=== PATIENT | male | born 1990 | race Caucasian/White ===

== ENCOUNTER → 2018-12-20 | Outpatient (CLI) | payer MEDICAID ==
--- NOTE | 2018-12-20 14:52 | Diagnostic Imaging Report ---
INDICATION: Right knee pain and swelling COMPARISON: None. FINDINGS: 3 views of the right knee joint demonstrate no acute fracture or dislocation. No focal osseous lesions are seen. No significant joint effusion is seen. The surrounding soft tissue structures are unremarkable. There are no radiopaque foreign bodies. IMPRESSION: 1. No acute fractures or dislocations of the right knee joint. Dictated by: Dictated on workstation # [id number]
== END ==
LOC: RAD FS 13:39
PROVIDERS: ATTEND Nurse Practitioner
DX: M25.461 Effusion, right knee (principal)
CPT/HCPCS: 73562

== ENCOUNTER → 2018-12-28 | Outpatient (CLI) | payer MEDICAID ==
--- NOTE | 2018-12-28 10:57 | Diagnostic Imaging Report ---
EXAMINATION: Magnetic resonance imaging of the right knee without intravenous contrast DATE: December 28, 2018. COMPARISON: Right knee radiographs December 20, 2018. INDICATION: 28-year-old male, right knee pain for approximately 2 months. No known recent injury. TECHNIQUE: Multiplanar, multisequence non contrast enhanced MR imaging was accomplished. FINDINGS: MENISCI: The medial meniscus is intact. The lateral meniscus is intact. LIGAMENTS AND TENDONS: The anterior and posterior cruciate ligaments are intact. The medial collateral ligament is intact. The iliotibial band, mid third lateral capsular ligament, fibular collateral ligament, biceps femoris tendon and conjoined tendon are intact. The quadriceps tendon and patella ligament are intact. JOINT: The articular cartilage surfaces are intact. There is no knee joint effusion, prominent synovitis, or intra-articular body. BONE: There is unremarkable bone marrow signal. Specifically, negative for fracture, osteomyelitis, osteonecrosis, or marrow replacing process. BURSAE AND SOFT TISSUES: There is a multiloculated ganglion cyst near the posterior knee joint capsule measuring 21 x 9 x 7 mm in size perhaps best illustrated on axial T2 fat saturation sequence image 4. There is a very small slitlike Huitron's cyst. IMPRESSION: 1. Intact menisci and cruciate ligaments. Additional ligaments and tendons are also intact. 2. Intact articular cartilage. No knee joint effusion. 3. No acute fracture, bone contusion, or other bone marrow signal abnormality. 4. Multiloculated ganglion cyst near the posterior knee joint capsule measuring 21 x 9 x 7 mm in size. Small slitlike Huitron's cyst. Dictated by: Dictated on workstation # [id number]
== END ==
LOC: RAD 08:56
PROVIDERS: ATTEND Nurse Practitioner
DX: M67.461 Ganglion, right knee (principal); M22.41 Chondromalacia patellae, right knee
CPT/HCPCS: 73721

== ENCOUNTER → 2018-12-30 | Outpatient (CLI) | payer MEDICAID ==
--- NOTE | 2018-12-30 11:22 | Diagnostic Imaging Report ---
INDICATION: Right shoulder pain. TIME OF EXAM: 10:41 a.m. Three views of the right shoulder were obtained. Glenohumeral and acromioclavicular alignment are normal. Acromiohumeral space is normal. No fracture or dislocation is seen. IMPRESSION: No acute bony abnormality is detected. Dictated by: Dictated on workstation # [id number]
== END ==
LOC: RAD FS 10:37
PROVIDERS: ATTEND Nurse Practitioner
DX: M25.511 Pain in right shoulder (principal)
CPT/HCPCS: 73030

== ENCOUNTER 2020-12-13 21:49 | Inpatient (IN) | payer BC, MEDICAID ==
[~2020-12-13] VITALS: Ht 177.8 cm; Wt 121.0 kg
--- OUTSIDE RECORDS SUMMARY | 2020-12-13 21:54 | XMS REPORT | Clinical Summary ---
Author Author [facility] Organization [facility] Address Unknown Phone Unavailable Care Team Providers Care Engineer Soils Name Role Phone Self, Yusuf LEWIS PCP Allergies No known active allergies Medications End Date Status Medication Sig Dispensed Refills Start Date Active cyclobenzaprine 0 (FLEXERIL) 10 MG tablet 7 Active diclofenac (VOLTAREN) 1 % 0 gel 7 Active meloxicam (MOBIC) 15 MG 0 tablet 7 Active oxyCODONE-acetaminophen Take 1 tablet 0 (PERCOCET) 2.5-325 mg per by mouth tablet every 4 (four) hours as needed for pain. Active Problems Not on file Social History Date Tobacco Use Types Packs/Day Years Used Never Smoker Smokeless Tobacco: Never Used Comments Alcohol Use Standard Drinks/Week No 0 (1 standard drink = 0.6 o z pure alcohol) Sex Assigned at Date Recorded Not on file Last Filed Vital Signs Reading Time Taken Comments Vital Sign 144/73 09/20/2016 1:45 PM CDT Blood Pressure 78 09/20/2016 1:45 PM CDT Pulse 36.7 C (98.1 F) 09/20/2016 1:45 PM CDT Temperature 16 09/20/2016 1:45 PM CDT Respiratory Rate 100% 09/20/2016 2:17 PM CDT Oxygen Saturation - - Inhaled Oxygen Concentration 99 kg (218 lb 4.1 oz) 11/16/2015 9:44 PM CDT Weight 182.9 cm (6') 11/16/2015 9:44 PM CDT Height 29.6 11/16/2015 9:44 PM CDT Body Mass Index Plan of Treatment Health Maintenance Due Date Last Done Comments Td/Tdap# 1990 Influenza Vaccine (#1) 2020 Pneumococcal Vaccine: Aged Out No longer eligib le based on patient's age to Pediatrics (0 to 5 Years) complete this topic and At-Risk Patients (6 to 64 Years) Results Not on filefrom Last 3 Months Advance Directives For more information, please contact: [phone] 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
[2020-12-13] MEDS ORDERED: NS IV 1000 ML 1,000 ML IV SCH (22:15)
--- NOTE | 2020-12-13 22:15 | ED General ---
General Stated Complaint: COVID+,O2 LOW Source of Information: Patient History of Present Illness Date Seen by Provider: Dec 13, 2020 Time Seen by Provider: 21:51 Initial Comments 30-year-old male presenting with complaints of increased shortness of breath and cough. He was diagnosed with Covid last week on Thursday. He follows with nurse practitioner Kristopher Wyatt at the clinic with Dr. Rhoades here in [place]. He states that the started him on a Z-Cole as well as Medrol Dosepak, DuoNeb treatments, budesonide breathing treatments, Zofran on Thursday, December 10. He has also been supplied with oxygen for home and was reportedly on 5 L. He has been complaining of back pain and muscle aches. He states that all day today he has been feeling worse. Finally around 10 PM he came here to the emergency department. He has a history of prediabetes and hypothyroidism. Timing/Duration: 1 Week Modifying Factors: worse with Movement (Activity makes him more short of breath) Associated Systoms: Cough; No Diaphoresis; Malaise; No Nausea/Vomiting; Shortness of Air, Weakness Allergies and Home Medications Allergies Coded Allergies: No Known Drug Allergies (Unverified , 12/13/20) Patient Home Medication List Home Medication List Reviewed: Yes Review of Systems Review of Systems Constitutional: fever (Subjective) EENTM: nose congestion; No epistaxis Respiratory: cough, short of breath; No stridor, No wheezing Cardiovascular: palpitations Gastrointestinal: No diarrhea, No nausea, No vomiting Genitourinary: decreased output; No dysuria Musculoskeletal: back pain (Low back pain with muscle spasms) Skin: No rash Psychiatric/Neurological: Weakness (Generalized) Hematologic/Lymphatic: Denies Blood Clots Past Nstocpn-Etheyv-Pqmcdq Hx Past Medical History Surgeries: No Respiratory: No Cardiac: No Neurological: No Genitourinary: No Gastrointestinal: No Musculoskeletal: No Endocrine: Yes (Prediabetes and hypothyroid) Hypothyroidsim HEENT: No Cancer: No Psychosocial: No Physical Exam Vital Signs Vital Signs - First Documented 12/13/20 12/13/20 21:58 23:51 Temp 36.9 Pulse 110 Resp 20 B/P (MAP) 149/82 (104) Pulse Ox 88 O2 Delivery Room Air O2 Flow Rate 2.00 Capillary Refill : Height, Weight, BMI Height: '" Weight: lbs. oz. kg; BMI Method: General Appearance: Mild Distress HEENT: PERRL/EOMI; No Moist Mucous Membranes (Slightly dry) Neck: Full Range of Motion, Normal Inspection, Non Tender, Supple Respiratory: No Accessory Muscle Use, Decreased Breath Sounds, Respiratory Distress (breathing about 30 times a min) Cardiovascular: Normal Peripheral Pulses, Tachycardia Gastrointestinal: Normal Bowel Sounds, No Pulsatile Mass, Non Tender, Soft Extremity: Normal Capillary Refill, Normal Inspection, No Pedal Edema Neurologic/Psychiatric: Alert, Oriented x3, clarifier II-XII Norm as Tested Skin: Normal Color, Warm/Dry Focused Exam Lactate Level 12/13/20 22:00: Lactic Acid Level 1.55 Lactic Acid Level Laboratory Tests Test 12/13/20 22:00 Lactic Acid Level 1.55 MMOL/L (0.50-2.00) Progress/Results/Core Measures Suspected Sepsis SIRS Temperature: Pulse: Respiratory Rate: Laboratory Tests 12/13/20 22:00: White Blood Count 3.6L Blood Pressure / Mean: 12/13/20 22:00: Lactic Acid Level 1.55 Laboratory Tests 12/13/20 22:00: Creatinine 1.37H, INR Comment 0.9, Platelet Count 178, Total Bilirubin 0.5 Results/Orders Lab Results Laboratory Tests Test 12/13/20 00:06 12/13/20 22:00 Range/Units White Blood Count 3.6 L 4.3-11.0 10^3/uL Red Blood Count 4.77 4.30-5.52 10^6/uL Hemoglobin 14.7 13.3-17.7 g/dL Hematocrit 43 40-54 % Mean Corpuscular Volume 90 80-99 fL Mean Corpuscular Hemoglobin 31 25-34 pg Mean Corpuscular Hemoglobin Concent 34 32-36 g/dL Red Cell Distribution Width 12.0 10.0-14.5 % Platelet Count 178 130-400 10^3/uL Mean Platelet Volume 10.8 9.0-12.2 fL Immature Granulocyte % (Auto) 1 % Neutrophils (%) (Auto) 81 H 42-75 % Lymphocytes (%) (Auto) 15 12-44 % Monocytes (%) (Auto) 4 0-12 % Eosinophils (%) (Auto) 0 0-10 % Basophils (%) (Auto) 0 0-10 % Neutrophils # (Auto) 2.9 1.8-7.8 X 10^3 Lymphocytes # (Auto) 0.5 L 1.0-4.0 X 10^3 Monocytes # (Auto) 0.1 0.0-1.0 X 10^3 Eosinophils # (Auto) 0.0 0.0-0.3 10^3/uL Basophils # (Auto) 0.0 0.0-0.1 10^3/uL Immature Granulocyte # (Auto) 0.0 0.0-0.1 10^3/uL Prothrombin Time 12.3 12.2-14.7 SEC INR Comment 0.9 0.8-1.4 Activated Partial Thromboplast Time 33 24-35 SEC D-Dimer 0.58 H 0.00-0.49 UG/ML Sodium Level 137 135-145 MMOL/L Potassium Level 4.1 3.6-5.0 MMOL/L Chloride Level 99 98-107 MMOL/L Carbon Dioxide Level 27 21-32 MMOL/L Anion Gap 11 5-14 MMOL/L Blood Urea Nitrogen 13 7-18 MG/DL Creatinine 1.37 H 0.60-1.30 MG/DL Estimat Glomerular Filtration Rate 62 BUN/Creatinine Ratio 9 Glucose Level 164 H 70-105 MG/DL Lactic Acid Level 1.55 0.50-2.00 MMOL/L Calcium Level 8.8 8.5-10.1 MG/DL Corrected Calcium 8.6 8.5-10.1 MG/DL Total Bilirubin 0.5 0.1-1.0 MG/DL Aspartate Amino Transf (AST/SGOT) 23 5-34 U/L Alanine Aminotransferase (ALT/SGPT) 37 0-55 U/L Alkaline Phosphatase 54 40-136 U/L Troponin I < 0.30 <0.30 NG/ML C-Reactive Protein 2.67 H <0.50 MG/DL Total Protein 7.6 6.4-8.2 GM/DL Albumin 4.3 3.2-4.5 GM/DL My Orders Orders - FATOU MARY MD Monitor-Rhythm Ecg Trace Only (12/13/20 22:06) Ed Iv/Invasive Line Start (12/13/20 22:06) Cbc With Automated Diff (12/13/20 22:06) Comprehensive Metabolic Panel (12/13/20 22:06) Crp Fs (12/13/20 22:06) Troponin I Fs (12/13/20 22:06) Protime With Inr (12/13/20:) Partial Thromboplastin Time (12/13/20 22:) Ekg Tracing (12/13/20 22:) Arterial Blood Gas (12/13/20 22:) Ns Iv 1000 Ml (Sodium Chloride 0.9%) (12/13/20 22:15) Covid-19 External Lab Results (12/13/20 22:) Isolation Central Supply Req (12/13/20 22:) Fibrin Degradation Products (12/13/20 22:) Chest 1 View Ap/Pa Only (12/13/20:) Blood Culture (12/13/20:08) Lactic Acid Analyzer (12/13/20 22:) O2 (12/13/20:08) Ns Iv 1000 Ml (Sodium Chloride 0.9%) (12/13/20 23:25) Benzonatate Capsule (Tessalon Perles) (12/13/20 23:25) Vital Signs/I&O 12/13/20 12/13/20 21:58 23:51 Temp 36.9 Pulse 110 98 Resp 20 20 B/P (MAP) 149/82 (104) 140/68 Pulse Ox 88 97 O2 Delivery Room Air Nasal Cannula O2 Flow Rate 2.00 12/14/20 00:00 Intake Total 1000 ml Balance 1000 ml Capillary Refill : Progress Note #1: Progress Note Obtain labs with blood gas and blood cultures with lactic acid. Electrocardiogram with cardiac enzymes. Chest x-ray. We will try to obtain a blood gas following manner. His O2 sat was anywhere from 84% to 92% on room air examining the patient. Give IV fluids for Hydration. Progress Note #2: Progress Note Labs show WBC count at low normal 3.6, consistent with viral illness. Lactic acid ok at 1.55. Cr is elevated at 1.37. Negative Troponin. CXR with poor inspiration but no definite infiltrate or effusion on my review of 1 view film. Despite 4 attempts, unable to obtain accurate ABG. DDimer is slightly elevated to 0.58. On room air his oxygen saturation has fluctuated from 84 to 89 % when he initially came to room. After resting on the bed for a few minutes he improved to 88-90% on room air while attempting to get ABG. On 2 Lpm by n.c. he has sats 93-95%. He continues to have respiratory rate in upper 20s to low 30s for his rate. Reviewed with pt that I did not really have anything to add at home on top of the Z-pack, Medrol Dose pack, Duoneb treatments, Budesoninde treatments, and Zofran. He already was using some home oxygen prescribed from Dr. Rhoades's office. Pt is willing to be admitted to get additional care, IVF and monitoring. 2323 d/w Dr. Mayorga for the hospitalist service about admit. He requested to start Remdesivir 200 mg loading dose then 100 mg IV q 24 hours x 4 more days in addition to using Covid order set. ECG Initial ECG Impression Date: Dec 13, 2020 Initial ECG Impression Time: 22:02 Initial ECG Rate: 106 Initial ECG Rhythm: S.Tach Initial ECG Comparisson: No Previous ECG Available Comment Sinus tachycardia with a heart rate of [address] elevation. WA interval 165 ms. QT interval 304 ms with a QTc interval 404 ms. There is no prior tracing available for comparison. Diagnostic Imaging Diagonstic Imaging: Xray Plain Films/CT/US/NM/MRI: chest Comments On my review is 1 view chest x-ray is poor respiratory effort with no definite effusion or infiltrate. Reviewed: Reviewed by Me Departure Communication (Admissions) Time/Spoke to Admitting Phy: 23:[address] Mayorga for the hospitalist service and he accepted admission for the patient. We will follow the Covid order set. He also requested to start remdesivir. Impression Primary Impression: Respiratory tract infection due to COVID-19 virus Additional Impression: Acute hypoxemic respiratory failure due to COVID-19 Disposition: 30 STILL A PATIENT Condition: Stable Admissions Decision to Admit Reason: Admit from ER (General) Decision to Admit/Date: Dec 13, 2020 Time/Decision to Admit Time: 23:23 Departure-Patient Inst. Referrals: NO,LOCAL PHYSICIAN (PCP/Family) Primary Care Physician FATOU MARY MD Dec 13, 2020 22:15
[2020-12-13 22:19] LABS: HEMOGLOBIN 14.7 g/dL (13.3-17.7); MEAN CORPUSCULAR HEMOGLOBIN 31 pg (25-34); MEAN CORPUSCULAR VOLUME 90 fL (80-99); WHITE BLOOD COUNT 3.6 10^3/uL (4.3-11.0)
[2020-12-13 22:20] LABS: BASOPHILS % (AUTO) 0 % (0-10); EOSINOPHILS % (AUTO) 0 % (0-10); HEMATOCRIT 43 % (40-54); LYMPHOCYTES # (AUTO) 0.5 X 10^3 (1.0-4.0); LYMPHOCYTES % (AUTO) 15 % (12-44); MEAN CORPUSCULAR HGB CONC 34 g/dL (32-36); MEAN PLATELET VOLUME 10.8 fL (9.0-12.2); MONOCYTES # (AUTO) 0.1 X 10^3 (0.0-1.0); MONOCYTES % (AUTO) 4 % (0-12); NEUTROPHILS # (AUTO) 2.9 X 10^3 (1.8-7.8); NEUTROPHILS % (AUTO) 81 % (42-75); PLATELET COUNT 178 10^3/uL (130-400)
[2020-12-13 22:40] LABS: BUN/CREATININE RATIO 9; CARBON DIOXIDE 27 MMOL/L (21-32); CHLORIDE 99 MMOL/L (98-107); CREATININE SERUM 1.37 MG/DL (0.60-1.30); GFR ESTIMATED 62; GLUCOSE 164 MG/DL (70-105); POTASSIUM 4.1 MMOL/L (3.6-5.0); SODIUM 137 MMOL/L (135-145)
[2020-12-13 22:41] LABS: ALANINE AMINOTRANSFERASE 37 U/L (0-55); ALBUMIN 4.3 GM/DL (3.2-4.5); ALKALINE PHOSPHATASE 54 U/L (40-136); BILIRUBIN,TOTAL 0.5 MG/DL (0.1-1.0); CALCIUM 8.8 MG/DL (8.5-10.1); TOTAL PROTEIN 7.6 GM/DL (6.4-8.2)
[2020-12-13 22:54] LABS: INR 0.9 (0.8-1.4); PROTHROMBIN TIME PATIENT 12.3 SEC (12.2-14.7)
[2020-12-13] MEDS ORDERED: NS IV 1000 ML 1,000 ML IV STA (23:25)
[2020-12-13] MEDS ORDERED: BENZONATATE 100 MG (TESSALON) CAPSULE PO STA (23:25)
[2020-12-14] MEDS ORDERED: ONDANSETRON 4 MG/2 ML (SDV) Z0FRAN IV PRN ×2 (03:45→11:00)
[2020-12-14] MEDS ORDERED: guaiFENesin SYRUP 100 MG/5 ML 10 ML (ROBITUSSIN SF) PO PRN (03:45)
[2020-12-14] MEDS ORDERED: ACETAMINOPHEN 325 MG TABLET PO PRN (03:45)
[2020-12-14 04:03] VITALS: BP 130/75
[2020-12-14 04:06] VITALS: BP 149/82
[2020-12-14] MEDS: LACTATED RINGERS 1,000 ML IV SCH ×2 (05:11→23:00)
[2020-12-14] MEDS: ENOXAPARIN 40 MG/0.4 ML (LOVENOX) SYR SC SCH (05:11)
[2020-12-14] MEDS: dexAMETHasone 6 MG TAB (DECADRON) PO SCH (05:12)
--- NOTE | 2020-12-14 05:45 | Diagnostic Imaging Report ---
INDICATION: cough, short of breath, Covid + COMPARISON: None FINDINGS: Single frontal view of the chest demonstrates normal heart size and pulmonary vascularity. The lungs show low inspiratory volumes, but are otherwise clear. No large pleural effusion or pneumothorax is seen. The visualized osseous structures show no acute abnormalities. IMPRESSION: 1. No acute cardiopulmonary process. Dictated by: Dictated on workstation # [id number]
[2020-12-14] MEDS: RT-ALBUTEROL HFA 8.5 GM INHALER IH SCH ×4 (07:42→18:56)
[2020-12-14 08:00] VITALS: BP 130/72
[2020-12-14] MEDS: REMDESIVIR INJ 200 MG in NS (IVPB) 210 ML IV NR ×2 (09:38→09:40)
[2020-12-14] MEDS: UMECLIDINIUM BROMIDE (INCRUSE ELLIPTA) 7'S IH SCH (10:26)
--- NOTE | 2020-12-14 10:33 | History & Physical-Hospitalist ---
History of Present Illness HPI/Chief Complaint Pt is a 30-year-old male with a PMH of NIDDMII and hypothyroidism who presented to the emergency department due to hypoxia. He reports that he was diagnosed with Covid on December 05 which is when he became symptomatic. Though he normally follows with Dr Miller at [facility] he scheduled an appointment with a nurse practitioner in [place], Kristopher Wyatt to get a Covid treatment cocktail. He states Kristopher prescribed him a Z-Cole, steroids, a couple of inhalers, and ivermectin. He did not receive MAB. Apparently at this time he was hypoxic and was set up with 5 L of oxygen at home. He has no home oxygen need prior to this. Despite this his saturations dropped to 84% last night and he continued to feel worse so he decided to seek evaluation in the emergency department. He reports having loss of taste and smell with some nausea. He complains of myalgias. He complains of persistent fevers. Deven treatment options and he states he was told by Kristopher Wyatt to decline remdesivir but he is agreeable to Decadron. Source: patient Date Seen 12/14/20 Time Seen by a Provider: 10:20 Attending Physician William Mayorga MD PCP No,Local Physician Referring Physician Date of Admission Dec 14, 2020 at 01:28 Home Medications & Allergies Home Medications Reviewed patient Home Medication Reconciliation performed by pharmacy medication reconciliations delivery technician and/or nursing. Patients Allergies have been reviewed. Allergies Allergies Coded Allergies No Known Drug Allergies (Dziuhdkwir07/4/21) Past Kheqozq-Bslyiz-Lwpoxo Hx Patient Social History Employed/Student: employed Tobacco Use?: No Smoking Status: Former Smoker Smokeless Tobacco Frequency: Never a User Use of E-Cig and/or Vaping dev: No Substance use?: No Alcohol Use?: No Pt feels they are or have been: No Immunizations Up To Date First/Initial COVID19 Vaccinat: None Tetanus Booster (TDap): Less Than 5 Years Hepatitis A: No Hepatitis B: No Current Status Advance Directives: No Communicates: Verbally Primary Language: Hungarian Preferred Spoken Language: Hungarian Is interpretation needed?: No Implanted or Applied Medical D: None Past Medical History Hypothyroidsim, Diabetes, Non-Insulin dep Family Medical History Reviewed Nursing Family Hx Review of Systems Constitutional: fever, malaise, weakness EENTM: no symptoms reported Respiratory: cough, short of breath Cardiovascular: No chest pain Gastrointestinal: see HPI, loss of appetite, nausea Genitourinary: no symptoms reported Musculoskeletal: muscle pain, muscle cramps Skin: no symptoms reported Psychiatric/Neurological: No Symptoms Reported Physical Exam Physical Exam Vital Signs Vital Signs - First Documented 12/13/20 12/13/20 12/14/20 21:58 23:30 04:06 Temp 36.9 Pulse 110 Resp 20 B/P (MAP) 149/82 (104) Pulse Ox 88 O2 Delivery Room Air O2 Flow Rate 2.00 FiO2 21 Capillary Refill : Less Than 3 Seconds Height, Weight, BMI Height: '" Weight: lbs. oz. kg; 38.75 BMI Method: General Appearance: No Apparent Distress, WD/WN, Obese HEENT: PERRL/EOMI, Moist Mucous Membranes Neck: Normal Inspection, Supple Respiratory: No Accessory Muscle Use, Decreased Breath Sounds, Rhonci; No Wheezing; Other (on 3lpm NC) Cardiovascular: Regular Rate, Rhythm, No Murmur Gastrointestinal: Normal Bowel Sounds, Non Tender, Soft Extremity: No Calf Tenderness, No Pedal Edema Neurologic/Psychiatric: Alert, Oriented x3, Normal Mood/Affect Results Results/Procedures Labs Laboratory Tests 12/13/20 22:00 Patient resulted labs reviewed. Imaging: Reviewed Imaging Report Imaging [facility] [place] NAME: CARISSA PATRICK [facility] REC#: [id number] PT STATUS: ADM IN : 1990 PHYSICIAN: FATOU MARY MD ADMIT DATE: 12/14/20 Signed Date of Exam:12/13/20 CHEST 1 VIEW AP/PA ONLY INDICATION: cough, short of breath, Covid + COMPARISON: None FINDINGS: Single frontal view of the chest demonstrates normal heart size and pulmonary vascularity. The lungs show low inspiratory volumes, but are otherwise clear. No large pleural effusion or pneumothorax is seen. The visualized osseous structures show no acute abnormalities. IMPRESSION: 1. No acute cardiopulmonary process. Dictated by: Dictated on workstation # [id number] Dict: 12/14/20 0536 Trans: 12/14/20 0844 [id number] Interpreted by: TAMAR BLANKENSHIP MD Electronically signed by: TAMAR BLANKENSHIP MD 12/14/20 0844 Assessment/Plan Admission Diagnosis Acute hypoxic respiratory failure duet o COVID19 Admission Status: Inpatient Order (span 2 midnights) Reason for Inpatient Admission: see below Assessment and Plan Acute hypoxic respiratory failure duet o COVID19 Now unable to do MAB due to hypoxia Declining remdesivir Will continue decadron Discussed possible need for Actemra if worsens lovenox for DVT ppx MAT protocol IS Oxygen supplementation to keep sats >90 NIDDMII Fills metformin SSI as likely will have higher BS due to steroids Hypothyroidism Continue home synthroid DVT ppx Lovenox Diagnosis/Problems Diagnosis/Problems (1) Non-insulin dependent type 2 diabetes mellitus (2) Hypothyroidism (3) Acute hypoxemic respiratory failure due to COVID-19 Status: Acute Copy Copies To 1: MANDI GARZA KATELYN M MD Dec 14, 2020 10:33
[2020-12-14] MEDS ORDERED: MELATONIN 3 MG TABLET PO PRN (11:00)
[2020-12-14] MEDS ORDERED: ANTACID SUSP 30 ML UDC (MYLANTA) PO PRN (11:00)
[2020-12-14] MEDS ORDERED: BENZONATATE 100 MG (TESSALON) CAPSULE PO PRN (11:00)
[2020-12-14] MEDS ORDERED: MILK OF MAGNESIA 400 MG/5 ML 30 ML UDC PO PRN (11:00)
[2020-12-14 12:00] VITALS: BP 129/69
[2020-12-14] MEDS ORDERED: ONDA4TAB11 PO (12:53)
[2020-12-14] MEDS ORDERED: AZIT250T12 PO (12:53)
[2020-12-14] MEDS ORDERED: METH4TAB10 PO (12:53)
[2020-12-14] MEDS ORDERED: METF-865 PO (12:53)
[2020-12-14] MEDS ORDERED: LEVO75TA6 PO (12:53)
[2020-12-14] MEDS ORDERED: BUDE0.5A NEB (12:53)
[2020-12-14] MEDS ORDERED: IPRA3AMP31 NEB (12:53)
[2020-12-14 16:00] VITALS: BP 113/74
[2020-12-14 20:00] VITALS: BP 107/71
[2020-12-14] MEDS: inSUlin ASPART (NovoLOG) 1 UNIT/0.01 ML (CHARGE PER UNIT) SC SCH (21:26)
[2020-12-15 00:11] VITALS: BP 118/69
[2020-12-15] MEDS: RT-ALBUTEROL HFA 8.5 GM INHALER IH PRN (02:36)
[2020-12-15 04:00] VITALS: BP 100/62
[2020-12-15] MEDS: inSUlin ASPART (NovoLOG) 1 UNIT/0.01 ML (CHARGE PER UNIT) SC SCH ×4 (05:19→20:41)
[2020-12-15] MEDS: ENOXAPARIN 40 MG/0.4 ML (LOVENOX) SYR SC SCH (06:13)
[2020-12-15] MEDS: LEVOTHYROXINE 75 MCG (LEVOTHROID) TABLET PO SCH (06:13)
[2020-12-15 06:54] LABS: BASOPHILS % (AUTO) 0 % (0-10); EOSINOPHILS % (AUTO) 0 % (0-10); HEMATOCRIT 39 % (40-54); HEMOGLOBIN 13.1 g/dL (13.3-17.7); LYMPHOCYTES % (AUTO) 23 % (12-44); MEAN CORPUSCULAR HEMOGLOBIN 31 pg (25-34); MEAN CORPUSCULAR HGB CONC 34 g/dL (32-36); MEAN CORPUSCULAR VOLUME 92 fL (80-99); MEAN PLATELET VOLUME 10.7 fL (9.0-12.2); MONOCYTES # (AUTO) 0.2 10^3/uL (0.0-1.0); MONOCYTES % (AUTO) 5 % (0-12); NEUTROPHILS # (AUTO) 3.2 10^3/uL (1.8-7.8); NEUTROPHILS % (AUTO) 71 % (42-75); PLATELET COUNT 182 10^3/uL (130-400); WHITE BLOOD COUNT 4.5 10^3/uL (4.3-11.0)
[2020-12-15 07:17] LABS: ALBUMIN 3.5 GM/DL (3.2-4.5); BILIRUBIN,TOTAL 0.6 MG/DL (0.1-1.0); CALCIUM 8.1 MG/DL (8.5-10.1); CREATININE SERUM 1.03 MG/DL (0.60-1.30); POTASSIUM 3.6 MMOL/L (3.6-5.0); TOTAL PROTEIN 6.3 GM/DL (6.4-8.2)
[2020-12-15] MEDS: RT-ALBUTEROL HFA 8.5 GM INHALER IH SCH ×5 (07:24→21:58)
[2020-12-15 08:00] VITALS: BP 110/68
[2020-12-15] MEDS: dexAMETHasone 6 MG TAB (DECADRON) PO SCH (09:23)
[2020-12-15] MEDS: REMDESIVIR INJ 100 MG in NS (IVPB) 230 ML IV SCH (09:24)
[2020-12-15] MEDS: UMECLIDINIUM BROMIDE (INCRUSE ELLIPTA) 7'S IH SCH (10:24)
[2020-12-15 12:00] VITALS: BP 110/68
--- NOTE | 2020-12-15 12:39 | Progress Note - Hospitalist ---
Subjective HPI/CC On Admission Date Seen by Provider: Dec 15, 2020 Time Seen by Provider: 12:34 Pt is a 30-year-old male with a PMH of NIDDMII and hypothyroidism who presented to the emergency department due to hypoxia. He reports that he was diagnosed with Covid on December 05 which is when he became symptomatic. Though amie muniz normally follows with Dr Miller at [facility] he scheduled an appointment with a nurse practitioner in [place], Kristopher Wyatt to get a Covid treatment cocktail. He states Kristopher prescribed him a Z-Cole, steroids, a couple of inhalers, and ivermectin. He did not receive MAB. Apparently at this time he was hypoxic and was set up with 5 L of oxygen at home. He has no home oxygen need prior to this. Despite this his saturations dropped to 84% last night and he continued to feel worse so he decided to seek evaluation in the emergency department. He reports having loss of taste and smell with some nausea. He complains of myalgias. He complains of persistent fevers. Deven treatment options and he states he was told by Kristopher Wyatt to decline remdesivir but he is agreeable to Decadron. Subjective/Events-last exam Pt reports feeling about the same today. Thinks he may be breathing a bit better. Still satting 90% on 3lpm. Discussed natural course of illness and if he remains stable after a couple more days can likely DC home with oxygen. Focused Exam Lactate Level 12/13/20 22:00: Lactic Acid Level 1.55 Objective Exam Vital Signs Vital Signs Date Time Temp Pulse Resp B/P (MAP) Pulse Ox O2 Delivery O2 Flow Rate FiO2 12/15/20 10:24 94 Nasal Cannula 3.00 12/15/20 08:00 38.0 105 22 110/68 (82) 12/14/20 04:06 21 Capillary Refill : Less Than 3 Seconds General Appearance: No Apparent Distress, Obese Respiratory: No Accessory Muscle Use, Decreased Breath Sounds, Other (on 3lpm) Cardiovascular: Regular Rate, Rhythm, No Murmur Extremity: No Calf Tenderness, No Pedal Edema Neurologic/Psychiatric: Alert, Oriented x3 Results/Procedures Lab Laboratory Tests 12/15/20 06:33 Patient resulted labs reviewed. Imaging: Reviewed Imaging Report Assessment/Plan Assessment and Plan Assess & Plan/Chief Complaint Acute hypoxic respiratory failure due to COVID19 Now unable to do MAB due to hypoxia Declining remdesivir Will continue decadron Discussed possible need for Actemra if worsens lovenox for DVT ppx MAT protocol IS Oxygen supplementation to keep sats >90- stable on 3lpm but satting just at 90% at rest NIDDMII Fills metformin SSI as likely will have higher BS due to steroids Hypothyroidism Continue home synthroid DVT ppx Lovenox Diagnosis/Problems Diagnosis/Problems (1) Non-insulin dependent type 2 diabetes mellitus (2) Hypothyroidism (3) Acute hypoxemic respiratory failure due to COVID-19 Status: Acute ALLISON ZHENG MD Dec 15, 2020 12:39
[2020-12-15 16:54] VITALS: BP 114/70
[2020-12-15 20:27] VITALS: BP 130/74
[2020-12-15] MEDS: LACTATED RINGERS 1,000 ML IV SCH (20:29)
[2020-12-16 00:35] VITALS: BP 103/67
[2020-12-16] MEDS: RT-ALBUTEROL HFA 8.5 GM INHALER IH SCH ×6 (02:26→21:58)
[2020-12-16] MEDS: inSUlin ASPART (NovoLOG) 1 UNIT/0.01 ML (CHARGE PER UNIT) SC SCH ×4 (05:53→21:20)
[2020-12-16] MEDS: LEVOTHYROXINE 75 MCG (LEVOTHROID) TABLET PO SCH (06:16)
[2020-12-16] MEDS: ENOXAPARIN 40 MG/0.4 ML (LOVENOX) SYR SC SCH (06:17)
[2020-12-16 07:10] LABS: HEMATOCRIT 41 % (40-54); HEMOGLOBIN 13.4 g/dL (13.3-17.7); MEAN CORPUSCULAR HEMOGLOBIN 30 pg (25-34); MEAN CORPUSCULAR HGB CONC 33 g/dL (32-36); MEAN CORPUSCULAR VOLUME 92 fL (80-99); MEAN PLATELET VOLUME 10.6 fL (9.0-12.2); PLATELET COUNT 218 10^3/uL (130-400); WHITE BLOOD COUNT 2.9 10^3/uL (4.3-11.0)
[2020-12-16 07:31] LABS: CALCIUM 8.5 MG/DL (8.5-10.1); CREATININE SERUM 1.02 MG/DL (0.60-1.30); POTASSIUM 3.9 MMOL/L (3.6-5.0)
[2020-12-16] MEDS: RT-ALBUTEROL HFA 8.5 GM INHALER IH PRN (07:43)
[2020-12-16] MEDS: UMECLIDINIUM BROMIDE (INCRUSE ELLIPTA) 7'S IH SCH (07:43)
[2020-12-16 08:00] VITALS: BP 136/77
[2020-12-16] MEDS: REMDESIVIR INJ 100 MG in NS (IVPB) 230 ML IV SCH (08:00)
[2020-12-16] MEDS: dexAMETHasone 6 MG TAB (DECADRON) PO SCH (08:51)
--- NOTE | 2020-12-16 10:20 | Progress Note - Hospitalist ---
Subjective HPI/CC On Admission Date Seen by Provider: Dec 16, 2020 Time Seen by Provider: 10:19 Pt is a 30-year-old male with a PMH of NIDDMII and hypothyroidism who presented to the emergency department due to hypoxia. He reports that he was diagnosed with Covid on December 05 which is when he became symptomatic. Though amie muniz normally follows with Dr Miller at [facility] he scheduled an appointment with a nurse practitioner in [place], Kristopher Wyatt to get a Covid treatment cocktail. He states Kristopher prescribed him a Z-Cole, steroids, a couple of inhalers, and ivermectin. He did not receive MAB. Apparently at this time he was hypoxic and was set up with 5 L of oxygen at home. He has no home oxygen need prior to this. Despite this his saturations dropped to 84% last night and he continued to feel worse so he decided to seek evaluation in the emergency department. He reports having loss of taste and smell with some nausea. He complains of myalgias. He complains of persistent fevers. Deven treatment options and he states he was told by Kristopher Wyatt to decline remdesivir but he is agreeable to Decadron. Subjective/Events-last exam Pt reports starting to feel better. Taste coming back and able to eat all of breakfast. Still on 3lpm. Focused Exam Lactate Level 12/13/20 22:00: Lactic Acid Level 1.55 Objective Exam Vital Signs Vital Signs Date Time Temp Pulse Resp B/P (MAP) Pulse Ox O2 Delivery O2 Flow Rate FiO2 12/16/20 09:51 93 Nasal Cannula 3.00 12/16/20 08:00 36.7 82 22 136/77 (96) 12/14/20 04:06 21 Capillary Refill : Less Than 3 Seconds General Appearance: No Apparent Distress, Obese Respiratory: Lungs Clear, No Accessory Muscle Use, Other (on 3lpm NC) Cardiovascular: Regular Rate, Rhythm, No Murmur Gastrointestinal: Normal Bowel Sounds, Soft Neurologic/Psychiatric: Alert, Oriented x3 Results/Procedures Lab Laboratory Tests 12/16/20 06:53 Patient resulted labs reviewed. Imaging: Reviewed Imaging Report Assessment/Plan Assessment and Plan Assess & Plan/Chief Complaint Acute hypoxic respiratory failure due to COVID19 Declining remdesivir Continue decadron Discussed possible need for Actemra if worsens lovenox for DVT ppx MAT protocol IS Oxygen supplementation to keep sats >90- stable on 3lpm but satting just at 90% at rest If remains stable may be able to DC home tomorrow or the next day with home oxygen NIDDMII Fills metformin SSI as likely will have higher BS due to steroids Hypothyroidism Continue home synthroid DVT ppx Lovenox Diagnosis/Problems Diagnosis/Problems (1) Non-insulin dependent type 2 diabetes mellitus (2) Hypothyroidism (3) Acute hypoxemic respiratory failure due to COVID-19 Status: Acute ALLISON ZHENG MD Dec 16, 2020 10:20
[2020-12-16 16:00] VITALS: BP 146/75
[2020-12-16] MEDS: LACTATED RINGERS 1,000 ML IV SCH (17:35)
[2020-12-16 23:35] VITALS: BP 106/62
[2020-12-17] MEDS: RT-ALBUTEROL HFA 8.5 GM INHALER IH SCH ×4 (02:59→14:38)
[2020-12-17] MEDS: ENOXAPARIN 40 MG/0.4 ML (LOVENOX) SYR SC SCH (06:23)
[2020-12-17] MEDS: LEVOTHYROXINE 75 MCG (LEVOTHROID) TABLET PO SCH (06:23)
[2020-12-17] MEDS: inSUlin ASPART (NovoLOG) 1 UNIT/0.01 ML (CHARGE PER UNIT) SC SCH ×2 (06:24→10:45)
[2020-12-17] MEDS: UMECLIDINIUM BROMIDE (INCRUSE ELLIPTA) 7'S IH SCH (06:37)
[2020-12-17] MEDS: RT-ALBUTEROL HFA 8.5 GM INHALER IH PRN ×2 (06:37→10:18)
[2020-12-17 08:00] VITALS: BP 126/82
[2020-12-17] MEDS: LACTATED RINGERS 1,000 ML IV SCH (08:29)
[2020-12-17] MEDS: dexAMETHasone 6 MG TAB (DECADRON) PO SCH (08:30)
[2020-12-17] MEDS: REMDESIVIR INJ 100 MG in NS (IVPB) 230 ML IV SCH (08:31)
--- NOTE | 2020-12-17 13:30 | Discharge Summary ---
Diagnosis/Chief Complaint Date of Admission Dec 14, 2020 at 01:28 Date of Discharge Discharge Summary-Simple/Stand Consultations Discharge Physical Examination Allergies: Coded Allergies: No Known Drug Allergies (Unverified , 12/13/20) Vitals & I&Os Vital Sign - Last 12Hours Date Time Temp Pulse Resp B/P (MAP) Pulse Ox O2 Delivery O2 Flow Rate FiO2 12/17/20 10:20 94 Nasal Cannula 2.00 12/17/20 08:00 36.3 62 20 126/82 (97) 12/14/20 04:06 21 Intake and Output 12/17/20 00:00 Intake Total 1040 ml Output Total 460 ml Balance 580 ml Hospital Course See final discharge diagnosis. Discharge Instructions to patient/family Please see electronic discharge instructions given to patient. Discharge Medications Reviewed and agree with Discharge Medication list on patient's Discharge Instruction sheet OSBALDO YUAN MD Dec 17, 2020 13:30
--- NOTE | 2020-12-17 13:33 | Discharge Summary ---
Discharge [facility] Reconcile Patient Problems Problems Reviewed?: Yes Discharge Medications New, Converted or Re-Newed RX: Other (No new meds) Continued Medications: Azithromycin (Azithromycin) 250 Mg Tablet 250 MG PO DAILY, TAB FILLED 12-10-2020 #6/5 DAY SUPPLY Budesonide (Budesonide) 0.5 Mg/2 Ml Ampul.neb 2 ML NEB BID PRN for COUGH/WHEEZE, ML Ipratropium/Albuterol Sulfate (Iprat-Albut 0.5-3(2.5) mg/3 ml) 3 Ml Ampul.neb 3 ML NEB Q6H PRN for SHORTNESS OF BREATH, ML Levothyroxine Sodium (Levothyroxine Sodium) 75 Mcg Tablet 75 MCG PO DAILY, TAB Metformin HCl (Metformin HCl ER) 500 Mg Tab.er.24h 500 MG PO 1800 W/MEAL, TAB Methylprednisolone (Methylprednisolone Dose Pack) 4 Mg Tab.ds.pk 4 MG PO UD, PKG PER DOSE PACK INSTRUCTIONS FILLED 12-10-2020 #21/6 DAY SUPPLY Ondansetron (Ondansetron Odt) 4 Mg Tab.rapdis 4-8 MG PO Q6H PRN for NAUSEA/VOMITING-1ST LINE, TAB Patient Instructions Goal/Follow Up Appt: F/u with PCP after released by [facility] for COVID Patient Instructions: - Make sure to complete you steroids - Continue to use inspiratory spirometer at least 4x per day Activity & Diet Discharge Diet: ADA Diet Activity as Tolerated: Yes OSBALDO YUAN MD Dec 17, 2020 13:33
[2020-12-17 13:40] VITALS: BP 126/82
== END 2020-12-17 15:20 | disposition home or self-care (01) | DRG 177 ==
LOC: EDUNIT# 21:49 → ER FS 21:50 → 4TH 12-14 01:28
PROVIDERS: ADMIT Internal Medicine; ATTEND Internal Medicine
DX: U07.1 COVID-19 (principal); J96.01 Acute respiratory failure with hypoxia; E11.9 Type 2 diabetes mellitus without complications; E03.9 Hypothyroidism, unspecified; Z79.890 Hormone replacement therapy; Z79.84 Long term (current) use of oral hypoglycemic drugs; Z87.891 Personal history of nicotine dependence; Z73.0 Burn-out
CPT/HCPCS: 36415; 71045; 80048; 80053; 82947; 83605; 84484; 85025; 85027; 85379; 85610; 85730; 86141; 87040; 93005; 93041; 94640; 94664; 94760